=== PATIENT | female | born 1990 | race Caucasian/White ===

== ENCOUNTER 2021-10-18 18:53 | Emergency (ER) | payer BC ==
[~2021-10-18] VITALS: Ht 152.4 cm; Wt 51.3 kg
[2021-10-18] MEDS ORDERED: TYLENOL (19:16)
[2021-10-18] MEDS ORDERED: ZITHROMAX500 MG PO (22:17)
[2021-10-18] MEDS ORDERED: MEDROLPACK PO (22:17)
[2021-10-18] MEDS ORDERED: DOLOGEN 325-11 EACH PO (22:17)
== END 2021-10-18 22:19 | disposition home or self-care (01) ==
LOC: ER 18:53
DX: U07.1 COVID-19 (principal); J06.9 Acute upper respiratory infection, unspecified